=== PATIENT | female | born 1985 | race Caucasian/White ===

== ENCOUNTER 2018-12-07 10:39 | Day surgery (SDC) | payer MEDICARE, MEDICAID ==
[~2018-12-07] VITALS: Ht 101.6 cm; Wt 45.3 kg
[2018-12-07] VITALS (7 sets, daily range): BP systolic 83–138; BP diastolic 45–84; PULSE 72–91; TEMP 98.1–98.5
[2018-12-07] MEDS ORDERED: BUSPAR10 MG PO (11:49)
[2018-12-07] MEDS ORDERED: COLACE 100100 MG/CAP PO (11:49)
[2018-12-07] MEDS ORDERED: FIBERCON PO (11:50)
[2018-12-07] MEDS ORDERED: MULTI VITAMINS1 TAB PO (11:50)
[2018-12-07] MEDS ORDERED: PRIL40 PO (11:51)
[2018-12-07] MEDS ORDERED: CLARITIN 1010 MG/TAB PO (11:51)
[2018-12-07] MEDS ORDERED: SINGULAIR 110 MG/TAB PO (11:51)
[2018-12-07] MEDS ORDERED: REMERON 15M15 MG/TA1 PO (11:51)
[2018-12-07] MEDS ORDERED: PERIDEX (CHLOR480 ML MM (11:52)
[2018-12-07] MEDS ORDERED: VESICARE 5MG5 MG PO (11:52)
[2018-12-07] MEDS ORDERED: FLONASE NASAL S16 GM NS (11:54)
[2018-12-07] MEDS ORDERED: CARBAMIDE PEROXIDE (12:00)
[2018-12-07] MEDS ORDERED: VITAMIND3 5000 PO (12:01)
[2018-12-07] MEDS ORDERED: TYLENOL 325MG325 MG PO (12:02)
[2018-12-07] MEDS ORDERED: FLOVENT 44MCG I13 GM IH (12:02)
[2018-12-07] MEDS ORDERED: NIZORAL SHAMPO120 M1 TP (12:03)
--- NOTE | 2018-12-07 12:57 | NUR ---
[place] [facility] [place] [facility] [place]. Pt drowsy, but awakens easily to verbal stimuli. Denies pain or nausea. Incision to left upper scalp is clean and dry, free from drainage. [facility] staff in room. Will continue to monitor. Call light within reach.
[2018-12-07] MEDS ORDERED: MOTRIN 600600 MG/TAB PO (13:11)
--- NOTE | 2018-12-07 13:15 | NUR ---
Pt continues to rest. Denies needs. Call light within reach.
--- NOTE | 2018-12-07 13:30 | NUR ---
Pt continues to rest. Water and applesauce given.
--- NOTE | 2018-12-07 13:45 | NUR ---
Pt continues to rest. Tolerating food and fluids without difficulties. Call light within reach.
--- NOTE | 2018-12-07 14:15 | NUR ---
Pt c/o pain to scalp. Pt unable to given pain a neumeric value. Pt states "It just hurts bad. Will provide pain medication per orders.
--- NOTE | 2018-12-07 14:45 | NUR ---
Pt requesting to leave. Pt states "I feel better." Discharge instructions reviewed. Pt and [facility] staff voice understanding. IV site discontinued with all parts intact. Pt up to dress with [facility] staff assistance.
--- NOTE | 2018-12-07 15:00 | NUR ---
Pt escorted to transportation vehicle via wheel chair. Pt accompanied home by the [facility] Staff.
== END 2018-12-07 15:00 | disposition home or self-care (01) ==
LOC: SDCO 10:39
DX: L72.11 Pilar cyst (principal); K21.9 Gastro-esophageal reflux disease without esophagitis; Q77.4 Achondroplasia; F41.9 Anxiety disorder, unspecified; Z79.899 Other long term (current) drug therapy; K59.00 Constipation, unspecified; L21.0 Seborrhea capitis; J45.909 Unspecified asthma, uncomplicated; F32.9 Major depressive disorder, single episode, unspecified; G43.909 Migraine, unspecified, not intractable, without status migrainosus; N32.81 Overactive bladder; R32 Unspecified urinary incontinence
CPT/HCPCS: J0690; J2250; J2405; J2704; J3010; J7120